=== PATIENT | male | born 1995 | race African-American/Black ===

== ENCOUNTER 2024-04-10 12:22 | Emergency (ER) | payer BC, MEDICAID ==
[~2024-04-10] VITALS: Ht 177.8 cm; Wt 75.0 kg
[~2024-04-10 12:22] MED LIST: ADDERALL; ALBUTEROL INHALER
[2024-04-10 12:25] VITALS: O2SAT 98
[2024-04-10 12:26] VITALS: BP 135/83; PULSE 82; RESP 18; TEMP 98.4; O2SAT 99
[2024-04-10] MEDS ORDERED: NAPR-681 MT (12:44)
== END 2024-04-10 13:01 | disposition home or self-care (01) ==
LOC: ER 12:22
DX: M54.9 Dorsalgia, unspecified (principal); M54.2 Cervicalgia; J45.909 Unspecified asthma, uncomplicated; V49.40XA Driver injured in collision with unspecified motor vehicles in traffic accident, initial encounter; Y93.9 Activity, unspecified; Y92.89 Other specified places as the place of occurrence of the external cause; Y99.8 Other external cause status
CPT/HCPCS: 99282